=== PATIENT | female | born 2000 | race Caucasian/White ===

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

== ENCOUNTER 2018-04-01 18:35 | Emergency (ER) | payer MEDICARE ==
[~2018-04-01] VITALS: Ht 154.9 cm; Wt 46.4 kg
[2018-04-01 19:14] VITALS: Ht 154.9 cm; Wt 46.4 kg
[2018-04-01 19:43] LABS: APPEARANCE CLOUDY (CLEAR); BILIRUBIN NEGATIVE (NEGATIVE); COLOR YELLOW (YELLOW); GLUCOSE NEGATIVE (NEGATIVE); KETONE NEGATIVE (NEGATIVE); NITRITE NEGATIVE (NEGATIVE); PROTEIN NEGATIVE (NEGATIVE); SPECIFIC GRAVITY 1.025 (1.005-1.020); UROBILINOGEN NORMAL (NORMAL)
[2018-04-01 19:50] LABS: BACTERIA MANY /hpf (NONE SEEN); RED CELLS - URINE 0-5 /hpf (0-5)
[2018-04-01] MEDS ORDERED: OMNICEF300 MG PO (23:54)
[2018-04-02 00:04] VITALS: BP 124/69
== END 2018-04-02 00:04 | disposition home or self-care (01) ==
LOC: D.ER 18:35
PROVIDERS: Family Medicine
DX: O02.1 Missed abortion (principal); O23.41 Unspecified infection of urinary tract in pregnancy, first trimester; Z3A.01 Less than 8 weeks gestation of pregnancy

== ENCOUNTER → 2019-03-31 15:34 | Outpatient (CLI) | payer MEDICARE ==
[2018-04-01 19:14] VITALS: BMI 19.3
[~2019-03-31 15:34] MED LIST: OMNICEF300 MG PO
[2019-04-07 21:30] VITALS: BMI 21.9
== END | disposition home or self-care (01) ==
LOC: D.LDO 15:34
PROVIDERS: ATTEND Obstetrics & Gynecology
DX: O35.9XX0 Maternal care for (suspected) fetal abnormality and damage, unspecified, not applicable or unspecified (principal)

== ENCOUNTER → 2019-04-03 15:12 | Outpatient (CLI) | payer MEDICARE ==
[2018-04-01 19:14] VITALS: BMI 19.3
[2019-04-07 21:30] VITALS: BMI 21.9
== END | disposition home or self-care (01) ==
LOC: D.LDO 15:12
PROVIDERS: ATTEND Obstetrics & Gynecology
DX: O36.5930 Maternal care for other known or suspected poor fetal growth, third trimester, not applicable or unspecified (principal); Z3A.37 37 weeks gestation of pregnancy

== ENCOUNTER 2019-04-07 21:05 | Inpatient (IN) | payer MEDICARE ==
[~2019-04-07] VITALS: Ht 154.9 cm; Wt 52.6 kg
[2019-04-07 21:30] VITALS: BP 130/84; Ht 154.9 cm; Wt 52.6 kg
[2019-04-07 22:38] LABS: HEMATOCRIT 30.6 % (36.0-48.0); MCH 27.9 pg (26.0-34.0); MCHC 32.7 g/dL (31.0-37.0); MCV 85.2 fL (80.0-100.0); MEAN PLATELET VOLUME 11.3 fL (7.4-10.4); RBC 3.59 10x6/uL (4.00-5.40); RDW 14.4 % (11.5-14.5); WBC 6.8 10x3/uL (4.8-10.8)
[2019-04-08] LABS: APPEARANCE CLEAR (CLEAR); BILIRUBIN NEGATIVE (NEGATIVE); COLOR YELLOW (YELLOW); GLUCOSE NEGATIVE (NEGATIVE); KETONE NEGATIVE (NEGATIVE); NITRITE NEGATIVE (NEGATIVE); PROTEIN NEGATIVE (NEGATIVE); UROBILINOGEN NORMAL (NORMAL)
--- NOTE | 2019-04-08 21:15 | NUR ---
RECEIVED TO ROOM FROM RECOVERY, PT IS AWAKE AND ALERT. FUNDUS FIRM AT U/1 WITH SCANT BLEEDING NOTED. BIKINI INCISION COVERED WITH LARGE WHITE BANDAGE THAT IS CLEAN AND DRY. OSBORN CATH TO BEDSIDE DRAIN WITH 50ML DARK REDISH COLORED URINE. IV TO RIGHT FOREARM INFUSING PER ORDER. BILAT SCD IN PLACE AND PUMP ON. PT DENIES NAUSEA AT THIS TIME AND IS REQUESTING A SPRITE TO DRINK. SIDE RAILS UP X 2 WITH PHONE AND CALL LIGHT IN REACH. FAMILY AT BEDSIDE.
[2019-04-08 21:18] VITALS: BP 109/70
[2019-04-08 21:22] VITALS: BP 112/71
--- NOTE | 2019-04-08 21:30 | NUR ---
PT RATES PAIN AT 10/10, TORDAL GIVEN SCANNED TO EMAR. DILAUDID CASE MONITOR STARTED WITH 0.2MG LOADING DOSE GIVEN. CASE MONITOR BUTTON GIVEN AND PT DEMONSTRATES UNDERSTANDING OF USE. FUNDUS FIRM AT U/1 WITH LIGHT BLEEDING NOTED. NIKI PAD CHANGED AND ICE PACK REAPPLIED TO INCISION. CALL LIGHT IN REACH WITH SIDE RAILS UP X 2.
--- NOTE | 2019-04-08 22:00 | NUR ---
rates pain at 7/10, fundus firm at u/1 with light bleeding noted. pt denies needs at this time call light in reach.
--- NOTE | 2019-04-08 23:00 | NUR ---
fundus firm at u/1 with scant bleeding without clots. rolando pad changed and pt tilted to her left side. rates pain at 5/10, encouraged her to use director multimedia button for pain control. call light in reach.
--- NOTE | 2019-04-08 23:30 | NUR ---
FUNDUS FIRM AT U/1 WITH SCANT BLEEDING NOTED. ATTMEPT TO CHANGE UNDERPAD AND PT GOWN BUT DUE TO OUT OF TOWN VISITOR HAVING JUST ARRIVED PT ASK IF SHE COULD CALL WHEN READY. REASSURED HER THAT WOULD BE OK, RATES PAIN AT4/10 AT THIS TIME. CALL LIGHT IN REACH WITH FAMILY/FRIENDS AT BEDSIDE.
--- NOTE | 2019-04-09 01:02 | NUR ---
FUNDUS FIRM AT U/1 WITH SCANT BLEEDING NOTED. UNDERPAD AND CHUX CHANGED, OSBORN CARE AT THIS TIME. PT RATES PAIN AT 5/10. TURNED SELF TO RIGHT SIDE WITH PILLOW TO BACK AND BETWEEN HER KNEES. CALL LIGHT IN REACH AND SIDE RAILS UP X 2 WITH PHONE IN REACH AND SIG OTHER AT BEDSIDE.
--- NOTE | 2019-04-09 01:07 | NUR ---
REPORT TO Cherelle NIETO RN.
--- NOTE | 2019-04-09 01:15 | NUR ---
ROUNDS MADE. PT LYING AWAKE IN BED USING CELLPHONE. INTRODUCTIONS MADE. PAIN AND NEEDS ASSESSED. PT REPORTS PAIN 0/10. DENIES NEEDS AT PRESENT. IV SITE WNL. NS W/PITOCIN INFUSING AT 125ML. OSBORN CATH ASSESSED. APPROX 20ML BLOOD URINE NOTED. PT ENCOURAGED TO DRINK. PT IS AGREEABLE. BED LOW, SIDE RAILS UP X 2. CALL LIGHT AND PHONE AT PT'S SIDE.
--- NOTE | 2019-04-09 02:05 | NUR ---
ROUNDS MADE. PT LYING AWAKE IN BED TALKING W/SIG OTHER. I.S. TEACHING PROVIDED AND PT PERFORMS W/GOOD EFFORT X 3. UNABLE TO COUGH, BUT DOES CLEAR THROAT X 3. OUTPUT ASSESSED. APPROX 38ML NOTED FOR [id number] AND UROMETER DUMPED TO BAG. PT DENIES PAIN AT PRESENT. [facility] MUG FILLED W/ICE WATER SERVED AND TEACHING PROVIDED IN REGARDS TO INCREASE PO FLUID INTAKE. NO NEEDS VOICED AT THIS TIME.
--- NOTE | 2019-04-09 04:00 | NUR ---
THIS RN TO BEDSIDE FOR T/C/D. PT WAKENED. PERFORMS I.S. X 3 AND CLEARS THROAT X 3 W/GOOD EFFORT. REPOSITIONS SELF TO LOW WHITLOCK'S POSITION. ICE CAP FRESHENED. URINE OUTPUT NOTED. 45 TOTAL (22.5/HR). PT HAS BEEN DRINKING SMALL AMOUNTS WATER. ENCOURAGED TO CONTINUE. DENIES PAIN OR NEEDS AT THIS TIME.
--- NOTE | 2019-04-09 04:55 | NUR ---
INFANT TO ROOM VIA OPEN CRIB, ID VERIFIED AT THIS TIME.
[2019-04-09 05:09] LABS: RAPID PLASMA REAGIN Non Reactive (Non Reactive)
--- NOTE | 2019-04-09 05:22 | NUR ---
PT REQUESTING TO EAT. BOWEL SOUNDS PRESENT AND PT INFORMED THAT SHE MAY EAT A REGULAR DIET IF SHE DESIRES. SIG OTHER TO GET HER SOMETHING TO EAT.
--- NOTE | 2019-04-09 06:15 | NUR ---
ROUNDS MADE. PT CURRENTLY SITTING UP IN BED AND HAS REPOSITIONED SELF. DENIES PAIN OR NEEDS. I&O COLLECTED. PUMPS CLEARED. OSBORN EMPTIED.
[2019-04-09 07:15] VITALS: BP 132/79
[2019-04-09 07:15] LABS: BASOPHILS 0.2 % (0-2); EOSINOPHILS 0.6 % (0-7); HEMATOCRIT 26.4 % (36.0-48.0); HEMOGLOBIN 8.6 g/dL (12-16); IMMATURE GRANULOCYTES 0.2 % (0-5); MCHC 32.6 g/dL (31.0-37.0); MEAN PLATELET VOLUME 12.2 fL (7.4-10.4); MONOCYTES 3.8 % (2-11); NEUTROPHILS 77.2 % (40-80); PLATELET COUNT 213 10x3/uL (130-400); RBC 3.07 10x6/uL (4.00-5.40); RDW 14.9 % (11.5-14.5)
--- NOTE | 2019-04-09 07:15 | NUR ---
TO PT'S ROOM, AM ASSESSMENT COMPLETED. INFANT RESTING QUIETLY IN CRIB. DIETARY SERVES REGULAR BREAKFAST TRAY TO PT. LARGE MUG OF ICE WATER SERVED TO PT. PT DENIES ALL OTHER NEEDS AT THIS TIME. SRUP X2, CALL LIGHT AND PHONE WITHIN REACH.
[2019-04-09 07:17] LABS: WBC 12.5 10x3/uL (4.8-10.8)
--- NOTE | 2019-04-09 11:15 | NUR ---
to pt's room, pericare done with warm wet washcloths, peritowels/chux changed. fundus firm, u/2, scant rubra lochia, no clots. hernandez cath continues to drain light yellow urine. 400 cc's noted in hernandez bag. fresh ice pack placed over gown to incision. large mug of ice water served to pt. pt denies all other needs at this time. srup x2, call light and phone within reach.
--- NOTE | 2019-04-09 13:04 | NUR ---
dr. rivera rounds on pt. md to room for assessment.
--- NOTE | 2019-04-09 16:15 | NUR ---
to pt's room, pt is sitting up in the bed, visiting with family. family bonding with infant. iv sl, flushed with 10 cc's ns, no redness, swelling or pain at iv site. fundus firm, u/2, scant rubra lochia, no clots. hernandez cath dc'd with 900 ml's yellow urine noted in hernandez bag. pericare done with warm wet washcloths. peripads placed on perineum. incision c/d/i. abdomen palpates soft. pain medication schedule explained to pt. pt denies all other needs at this time. sr up x2, call light and phone within reach.
--- NOTE | 2019-04-09 18:30 | NUR ---
pt calls out rn clinical documentation specialist light requesting to get up to the br to void. pt assisted up to br, gait slow and steady. warm wet washcloths provided for pericare. call light within reach.
--- NOTE | 2019-04-09 18:50 | NUR ---
bed linens changed. pt unable to void, pericare done with warm wet washcloths. peripanties and pads on. pt back to bed. srup x 2, call light and phone within reach. will adm toradol iv for pain relief. family at bedside.
--- NOTE | 2019-04-09 18:55 | NUR ---
REPORT TO DR NUÑEZ - PT NEED FOR ORAL PAIN MEDICATION. NEW ODERS RECEIVED.
--- NOTE | 2019-04-09 18:55 | NUR ---
toradol 30 mg sivp given, see emar for all meds adm by this rn.
--- NOTE | 2019-04-09 19:00 | NUR ---
report given to 7 p shift.
--- NOTE | 2019-04-09 19:30 | NUR ---
THIS RN TO BEDSIDE FOR SHIFT ASSESSMENT. PT CURRENTLY FEEDING .WILL RETURN TO ASSESS WHEN SHE HAS FINISHED. PAIN AND NEEDS ASSESSED. PT REPORTS PAIN IS 8/10. ADDITIONAL PAIN MEDICATION EDUCATION PROVIDED. PT DENIES NEEDS AT THIS TIME. FAMILY AT BEDSIDE.CALL LIGHT AT PT'S SIDE.
--- NOTE | 2019-04-09 20:00 | NUR ---
PT'S FAMILY MEMBER TO NURSING STATION TO REPORT PT IS COMPLAINING OF INCREASED PAIN. THIS RN TO BEDSIDE FOR PAIN ASSESSMENT,SHIFT ASSESSMENT AND PERCOCET ADMIN. PAIN MEDICATION EDUCATION & PAIN GOAL EDUCATION PROVIDED. PT VEBALZIES UNDERSTANDING AND AGREEABLE. PT ENCOURAGED TO ATTEMPT TO VOID AGAIN. PAIN MEDIATION ADMIN. SEE EMAR. PT OOB W/MINIMAL ASSIST. AMBULATORY TO BR. ATTEMPTS FOR SEVERAL MINUTES TO VOID. PT UNABLE TO AT THIS TIME. PT BACK TO BED. [facility] MUG FILLED W/WATER, SERVED AND PT ENCOURGED TO DRINK. PT TEARFUL WITH MOVEMENT, BUT QUICKLY CALMS HERSELF AFTER EDUCATION PROVIDED. PT DENIES FURTHER NEEDS. SEE FLOWSHEET FOR ASSESSMENT. FAMILY AT BEDIDE.
[2019-04-09 20:10] VITALS: BP 126/74
--- NOTE | 2019-04-09 20:53 | NUR ---
ROUNDS MADE FOR PAIN REASSESSMENT. PT REPORTS WHEN NOT MOVING, HER PAIN IS 0/10. PT OOB W/OUT ASSISTANCE TO BR TO VOID. PT ABLE TO VOID APPROX 900ML WITHOUT DIFFICULTY. CHUX CHANGED ON BED. PT AMBULATORY BACK TO BED. RATES PAIN 3-4/10. NO FURTHER PAIN INTERVENTIONS REQUESTED AT THIS TIME.
--- NOTE | 2019-04-09 21:00 | NUR ---
scd wraps placed back on le's x 2. remain connected to pump. pump turned on and education provided. trash removed from room. pt denies needs. encouraged to continue using i.s. and drinking water. pt educated regarding collecting void x 2 more times. bed low, side rails up x 2. call light and phone at pt's side.
--- NOTE | 2019-04-09 22:00 | NUR ---
ROUNDS MADE. PT LYING AWAKE IN BED. PAIN AND NEEDS ASSESSED. PT DENIES NEEDS. RATES PAIN 3/10.
--- NOTE | 2019-04-09 23:35 | NUR ---
ROUNDS MADE. PT AA&O X 4 SITTING UP IN BED WATCHING TV. PAIN AND NEEDS ASSESSED. PT REPORTS SHE IS JUST NOW BEGINNING TO START CRAMPING AND NOTICING HER PAIN IS BEGINNING TO RETURN. RATES ABD CRAMPING PAIN AND INCISIONAL PAIN /10. MOTRIN AND PERCOCET OFFERED. PT ACCEPTS. SEE EMAR FOR ADMIN. FRESH ICE WATER SERVED. PT DENIES FURTHER NEEDS. IN OPEN CRIB AT BEDSIDE. SIG OTHER RESTING ON SOFA. BED LOW, SIDE RAILS UP X 2. CALL LIGHT AND PHONE AT PT'S SIDE.
--- NOTE | 2019-04-10 00:30 | NUR ---
ROUNDS MADE FOR PAIN REASSESSMENT. PT AA&O X 4 SITTING UP IN BED AWAKE. RATES PAIN 2/10. ENCOURAGED TO ATTEMPT TO VOID. PT AGREEABLE AND DESIRES TO SHOWER. SHOWER CHAIR, WASH CLOTHS AND TOWELS PROVIDED. PT HAS ALL OTHER BATHING ITEMS. DENIES ADDITIONAL NEEDS.
--- NOTE | 2019-04-10 01:34 | NUR ---
PT OUT OF SHOWER. RETURNS TO BED. SCD WRAPS PLACED BILATERALLY TO LE'S. REMAINS CONNECTED TO PUMP. PUMP IS ON AND FUNCTIONING. PT ABLE TO VOID ANOTHER 900ML IN NUNS CAP. COLLECTION STOPPED AT THIS TIME. PT RATES PAIN 2/10. DENIES FURTHER NEEDS. PLANS TO REST. SIG OTHER ON SOFA. BED LOW, SIDE RAILS UP X 2. CALL LIGHT AND PHONE AT PT'S SIDE.
--- NOTE | 2019-04-10 03:30 | NUR ---
ROUNDS MADE. PT AWAKE SITTING UP IN BED CALLING OUT TO SIG OTHER. ASSISTANCE OFFERED. PT REPORTS SIG OTHER WAS TO GET UP TO GO GET FROM NBN. OFFER MADE FOR THIS RN TO OBTAIN . PT ACCEPTS. TO NBN TO GET . [employer]BN NURSE French RED CUSTOMER CARE ASSOCIATE TO TRANSPORT INFANT TO ROOM. PT DENIES PAIN OR NEEDS AT THIS TIME.
--- NOTE | 2019-04-10 04:18 | NUR ---
THIS RN TO BEDSIDE W/1 TAB PERCOCET TO OFFER FOR PAIN. PT CURRENTLY DENIES PAIN AT PRESENT AND DECLINES PAIN MEDICATION AT THIS TIME. PT EDUCATED TO NOT WAIT TOO LONG TO TAKE PAIN MEDICATION AND INFORM THIS RN SOON SHE HAS PAIN. PT AGREEABLE.
[2019-04-10 07:28] VITALS: BP 123/89
--- NOTE | 2019-04-10 07:29 | NUR ---
AM ASSESSMENT COMPLETED, PT SITTING UPRIGHT IN BED WITH INFANT IN ARMS, BONDING WELL WITH , RESP EVEN AND UNLABORED, REPORTS PAIN 6/10 ON NUMERIC PAIN SCALE REQUESTS MEDS AND SAME PROVIDED. LUNGS CTAB, HEART RRR, ABD SOFT APPROPRIATELY TENDER, FUNDUS FIRM AT U/2 AND MIDLINE, LOW TRANSVERSE INCISION CDI, NO REDNESS, WARMTH, DRAINAGE NOTED. LOCHIA RUBRA MODERATE AMOUNT DENIES CLOTS, PERICARE PER PT. BILLY FREELY, VOIDING WITHOUT DIFFICULTY, PEDAL PULSES STRONG/=/+2 B, NEGATIVE CARLOS'S SIGN B LE. CALL LIGHT IN EASY REACH, BED IN LOW POSITION, BED BRAKES LOCKED, SIDE RAILS UP X2, SO AT BS. DISCUSSED POC TODAY AND NEED TO AMBULATE IN HALLS X3 TODAY, TCDB, PAIN CONTROL, POSSIBLE DC TONIGHT OR TOMORROW. QUESTIONS ANSWERED,WILL CONTINUE TO MONITOR.
--- NOTE | 2019-04-10 08:15 | NUR ---
PAIN REASSESSMENT COMPLETED. DENIES PAIN AT THIS TIME, REVIEWED POC EXPECTATIONS, PT STATES UNDERSTANDING, NO OTHER NEEDS VOICED AT THIS TIME.
--- NOTE | 2019-04-10 09:30 | NUR ---
ROUNDS COMPLETED, RESP EVEN AND UNLABORED, NAD NOTED, SMILING, OOB TO BR TO VOID X1, ATE 75% CONTENTS OF BREAKFAST TRAY CONTINUE TO MONITOR.
--- NOTE | 2019-04-10 10:40 | NUR ---
ROUNDS COMPLETED, PT SITTING UP AT 45 DEGREES IN BED WITH EYES CLOSED, RESP EVEN AND UNLABORED, IN ROLLING CRIB ADJACENT TO PT BED ALSO WITH NAD NOTED. SIGNIFICANT OTHER SLEEPIGN ON COUCH. CALL LIGHT IN EASY REACH, CONTINUE TO MONITOR.
--- NOTE | 2019-04-10 11:15 | NUR ---
HOURLY ROUNDS COMPLETED, PT SLEEPING NAD NOTED. WILL MONITOR.
--- NOTE | 2019-04-10 12:51 | NUR ---
ROUNDS COMPLETED, PT SITTING UP IN BED EATING LUNCH, DENIES NEEDS OR CONCERNS, STATES NO NEED FOR PAIN MEDICATION. CALL LIGHT IN EASY REACH, RESP EVEN AND UNLABORED, WILL MONITOR.
--- NOTE | 2019-04-10 14:46 | NUR ---
DR NUÑEZ NOTIFIED PATIENT WILL WILL BE 48 HOURS PP AT 2005. HAS RECEIVED DC ORDERS. NEW ORDERS RECEIVED TO DC AFTER 2005 THIS PM.
--- NOTE | 2019-04-10 15:55 | NUR ---
ROUNDS COMPLETED, DENIES NEEDS OR CONCERNS, NAD. CONTINUE TO MONITOR.
--- NOTE | 2019-04-10 16:38 | NUR ---
C/O ABDOMINAL INCISIONAL PAIN AND CRAMPING,R EQUESTS BOTH MOTRIN AND PERCOCET, SAME PROVIDED, INFANT IN PT ARMS, FAMILY AT BS PROVIDING SUPPORT. DENIES OTHER NEEDS OR CONCERNS AT THIS TIME. CONTINUE TO MONITOR.
--- NOTE | 2019-04-10 17:20 | NUR ---
PAIN REASSESSMENT COMPLETED, RATES PAIN ZERO ON PAIN SCALE AT THIS TIME. DENIES OTHER NEEDS, FAMILY AT BS. CALL LIGHT IN EASY REACH. CONTINUE TO MONITOR.
--- NOTE | 2019-04-10 18:23 | NUR ---
ROUNDS COMPLETED, RESP EVEN AND UNLABORED, PT SMILING WITH IN ARMS, DENIES NEEDS OR CONCERNS. DISCUSSED POC TO DISCHARGE AFTER 2007 [place]. STATES UNDERSTANDING.
--- NOTE | 2019-04-10 19:16 | NUR ---
BEDSIDE REPORT GIVEN TO Cherelle CORREIA RN.
[2019-04-10] MEDS ORDERED: HYDROCODON-ACE1 EA10 PO ×2 (19:47→19:49)
[2019-04-10] MEDS ORDERED: IBUPROFEN600 MG PO (19:47)
[2019-04-10 19:50] VITALS: BP 126/83
--- NOTE | 2019-04-10 19:50 | NUR ---
ASSESSMENT PER FLOW SHEET, VS OBTAINED, SALINE LOCK REMOVED, TIP INTACT, PRESSURE HELD, BANDAID APPLIED, BIKINI INC WITH LORI CDI WITH NO DRAINAGE, PT REPORTS LITE BLEEDING WITH NO CLOT, REPORTS FLATUS, NO BM AND VOIDING WITH NO DIFFICULTY, PT DENIES NEEDS OR PAIN AT THIS TIME, CAMRYN RED LPN IN ROOM DOING ASSESSMENT ON
--- NOTE | 2019-04-10 20:14 | NUR ---
WENT OVER DISCHARGE INSTRUCTIONS AND PRESCRIPTIONS WITH PT, PT VERBALIZES UNDERSTANDING, INFORMED PT WILL DISCHARGE HER WHEN INFANT PAPER WORK IS COMPLETED, PT VERBALIZES UNDERSTANDING, TO PT'S ARMS
--- NOTE | 2019-04-10 21:30 | NUR ---
PT FEEDING INFANT AT THIS TIME, PT INST TO USE CALL LIGHT WHEN READY FOR DISCHARGE, PT VERBALIZES UNDERSTANDING, FOB TAKING BELONGINGS OUT TO CAR
--- NOTE | 2019-04-10 22:10 | NUR ---
PT FOUNTAIN SUPERVISOR LIGHT, PT READY FOR DISCHARGE, BECKI FERRARA RN FROM MED 2 TAKES PT OUT VIA WC, FOB AND INFANT IN CAR SEAT AT SIDE
== END 2019-04-10 22:10 | disposition home or self-care (01) | DRG 788 ==
LOC: D.LD 21:05
PROVIDERS: ADMIT Obstetrics & Gynecology; ATTEND Obstetrics & Gynecology
PROC: 3E033VJ Introduction of Other Hormone into Peripheral Vein, Percutaneous Approach (ICD-10-PCS; 2019-04-08)
PROC: 10907ZC Drainage of Amniotic Fluid, Therapeutic from Products of Conception, Via Natural or Artificial Opening (ICD-10-PCS; 2019-04-08)
PROC: 10D00Z1 Extraction of Products of Conception, Low, Open Approach (ICD-10-PCS; principal; 2019-04-08 20:07)
DX: O36.5930 Maternal care for other known or suspected poor fetal growth, third trimester, not applicable or unspecified (principal); Z3A.38 38 weeks gestation of pregnancy; Z37.0 Single live birth; Z87.891 Personal history of nicotine dependence; O76 Abnormality in fetal heart rate and rhythm complicating labor and delivery